=== PATIENT | female | born 1955 | race African-American/Black ===

== ENCOUNTER → 2016-11-14 16:38 | Emergency (ER) | payer BC ==
[~2016-11-14 16:38] MED LIST: MECLIZINE 25 MG PO ONE; Magnesium Sulfate 2 GM IV* 2 GM/50 ML BAG IVPB ONE; Meclizine TAB* 12.5 MG PO ONE; NS 0.9% 1000 ML* 1,000 ML IV SCH; Ondansetron INJ* 2 MG/ML VIAL IV ONE
[2016-11-14 17:22] LABS: Hematocrit 44 % (35-47); Mean Corpuscular HGB Conc 32 g/dl (31-36); Mean Corpuscular Hemoglobin 27 pg (27-31); Mean Corpuscular Volume 83 fL (80-97); Mean Platelet Volume 10 um3 (7.4-10.4); Red Blood Count 5.26 10^6/ul (4.0-5.4); Red Cell Distribution Width 14 % (10.5-15); White Blood Count 9.3 10^3/ul (3.5-10.8)
[2016-11-14 17:34] LABS: ALT 16 U/L (7-52); AST 21 U/L (13-39); Albumin 4.1 g/dL (3.2-5.2); Alkaline Phosphatase 79 U/L (34-104); Anion Gap 9 mmol/L (2-11); BUN/Creatinine Ratio 22.7 (8-20); Blood Urea Nitrogen 25 mg/dL (6-24); C Reactive Protein 4.72 mg/L (< 5.00); CO2 Carbon Dioxide 27 mmol/L (22-32); Calcium 9.7 mg/dL (8.6-10.3); Chloride 103 mmol/L (101-111); Creatine Kinase 347 U/L (10-223); EGFR African American 64.5 (>60); EGFR Non-African American 50.2 (>60); Globulin 3.6 g/dL (2-4); Glucose 122 mg/dL (70-100); Lipase < 10 U/L (11.0-82.0); Magnesium 1.7 mg/dL (1.9-2.7); Potassium 3.1 mmol/L (3.5-5.0); Sodium 139 mmol/L (133-145); Total Protein 7.7 g/dL (6.4-8.9)
[2016-11-14 17:36] LABS: Troponin I 0.03 ng/mL (<0.04)
[2016-11-14 18:03] LABS: TSH (Thyroid Stimulating Horm) 4.59 mcIU/mL (0.34-5.60)
--- NOTE | 2016-11-14 18:12 | RAD ---
INDICATION: Dizziness COMPARISON: None. TECHNIQUE: Single AP portable view of the chest was obtained. FINDINGS: Image quality is compromised due to the relative inferiority of a portable chest x-ray. The heart and mediastinum exhibit normal size and contour. The lungs are grossly clear. There is no evidence of a large pleural effusion. Visualized bones are normal for the patient's age. IMPRESSION: No radiographic evidence for acute cardiopulmonary abnormality on this portable chest x-ray.
--- NOTE | 2016-11-14 18:56 | RAD ---
INDICATION: Dizziness COMPARISON: None. TECHNIQUE: Contiguous axial sections of the brain were obtained from the skull base to the vertex without contrast. FINDINGS: The ventricles, cisterns and sulci are within normal limits. The maria-white matter differentiation is adequately maintained and there is no sulcal effacement. No significant focal abnormality or mass effect is present. There is no evidence for intracranial hemorrhage. Coarse calcification is noted the bilateral petrous carotid arteries and the left greater than right vertebral arteries. No significant focal osseous abnormality is present. The visualized portion of the paranasal sinuses and mastoid air cells appear clear. IMPRESSION: No acute intracranial abnormality as described above.
[2016-11-14 19:22] LABS: Urine Bacteria Absent (Absent); Urine Bilirubin Negative (Negative); Urine Glucose Negative (Negative); Urine Nitrite Negative (Negative)
--- NOTE | 2016-11-14 21:43 | ED ---
Ziggy Burch Anna, scribed for Maury Mccall MD on 11/14/16 at 1712 . Dizziness - HPI Summary HPI Summary: Patient is a 61 y/o female BIBA to [facility] presenting with the sudden onset of dizziness that began at 1445 today. She describes the sensation as beginning with tinnitus and progressing to the spinning of the room. The tinnitus has since resolved. She was sitting in a nondenominational meeting at the onset of the symptoms. The dizziness is exacerbated by moving her head. She also experienced emesis, nausea, diaphoresis, and left chest tightness. Prior to the incident, she had pain in her right leg accompanied by right knee edema. Her PCP prescribed her Prilosec and Naproxen, which has alleviated the pain somewhat. Denies ROTHMAN, abd pain, diarrhea, fever, rhinorrhea, rashes, burning with urination , and SOB. - History Of Current Complaint Chief Complaint: EDDizziness Stated Complaint: CHEST PAIN/VOMITING Time Seen by Provider: 11/14/16 16:56 Hx Obtained From: Patient, Family/Chemical Pumper - Accompanied by family Onset/Duration: Still Present, Suddenly Timing: Hours Character: Room Spinning, Dizzy - Allergies/Home Medications Allergies/Adverse Reactions: Allergies Allergy/AdvReac Type Severity Reaction Status Date / Time No Known Allergies Allergy Verified 11/14/16 17:38 PMH/Surg Hx/FS Hx/Imm Hx Endocrine/Hematology History: Reports: Hx Diabetes Cardiovascular History: Reports: Hx Hypertension GI History: Reports: Hx Diverticulosis, Other GI Disorders - Diverticulitis Infectious Disease History: No Infectious Disease History: Denies: Traveled Outside the [place] in Last 30 Days - Family History Known Family History: Positive: Hypertension, Diabetes, Other - [place] - Social History Occupation: Employed Full-time Lives: With Family Alcohol Use: None Hx Substance Use: No Substance Use Type: Reports: None Hx Tobacco Use: No Smoking Status (MU): Never Smoked Tobacco Review of Systems Positive: Skin Diaphoresis. Negative: Fever ENT: Other - tinnitus Negative: Nasal Discharge Positive: Chest Pain Negative: Shortness Of Breath Positive: Vomiting, Nausea. Negative: Abdominal Pain, Diarrhea Negative: burning Positive: Arthralgia, Edema Negative: Rash Neurological: Other - dizziness Negative: Headache All Other Systems Reviewed And Are Negative: Yes Physical Exam Triage Information Reviewed: Yes Vital Signs On Initial Exam: Initial Vitals Temp Pulse Resp Pulse Ox 97.9 F 64 16 98 11/14/16 16:51 11/14/16 16:51 11/14/16 16:51 11/14/16 16:51 Vital Signs Reviewed: Yes Appearance: Positive: No Pain Distress, Ill-Appearing - mildly Skin: Positive: Warm, Skin Color Reflects Adequate Perfusion, Dry Head/Face: Positive: Normal Head/Face Inspection Eyes: Positive: EOMI, JAKE ENT: Positive: Other - Left ear cerumen impaction. Right TM normal. Respiratory/Lung Sounds: Positive: Clear to Auscultation, Breath Sounds Present Cardiovascular: Positive: RRR Abdomen Description: Positive: Nontender, Soft Bowel Sounds: Positive: Present Musculoskeletal: Positive: Strength/ROM Intact, Edema Left, Edema Right Neurological: Positive: Sensory/Motor Intact, Alert, Oriented to Person Place, Time, Other - Nystagmus. No focal neurological deficit. Psychiatric: Positive: Affect/Mood Appropriate Diagnostics - Vital Signs Vital Signs Temp Pulse Resp BP Pulse Ox 11/14/16 16:55 97.9 F 64 14 207/88 98 11/14/16 16:51 97.9 F 64 16 98 - Laboratory Lab Results: Lab Results 11/14/16 11/14/16 11/14/16 Range/Units 16:55 16:55 16:55 WBC 9.3 (3.5-10.8) 10^3/ul RBC 5.26 (4.0-5.4) 10^6/ul Hgb 14.0 (12.0-16.0) g/dl Hct 44 (35-47) % MCV 83 (80-97) fL MCH 27 (27-31) pg MCHC 32 (31-36) g/dl RDW 14 (10.5-15) % Plt Count 152 (150-450) 10^3/ul MPV 10 (7.4-10.4) um3 Neut % (Auto) 58.1 (38-83) % Lymph % (Auto) 35.5 (25-47) % Clay % (Auto) 4.8 (1-9) % Eos % (Auto) 1.2 (0-6) % Baso % (Auto) 0.4 (0-2) % Absolute Neuts (auto) 5.4 (1.5-7.7) 10^3/ul Absolute Lymphs (auto) 3.3 (1.0-4.8) 10^3/ul Absolute Monos (auto) 0.4 (0-0.8) 10^3/ul Absolute Eos (auto) 0.1 (0-0.6) 10^3/ul Absolute Basos (auto) 0 (0-0.2) 10^3/ul Absolute Nucleated RBC 0.01 10^3/ul Nucleated RBC % 0.1 INR (Anticoag Therapy) 0.86 L (0.89-1.11) APTT 28.7 (26.0-36.3) seconds D-Dimer, Quantitative 239 H (Less Than 230) ng/mL Sodium 139 (133-145) mmol/L Potassium 3.1 L (3.5-5.0) mmol/L Chloride 103 (101-111) mmol/L Carbon Dioxide 27 (22-32) mmol/L Anion Gap 9 (2-11) mmol/L BUN 25 H (6-24) mg/dL Creatinine 1.10 H (0.51-0.95) mg/dL Est GFR ( Amer) 64.5 (>60) Est GFR (Non-Af Amer) 50.2 (>60) BUN/Creatinine Ratio 22.7 H (8-20) Glucose 122 H (70-100) mg/dL Lactic Acid (0.5-2.0) mmol/L Calcium 9.7 (8.6-10.3) mg/dL Magnesium 1.7 L (1.9-2.7) mg/dL Total Bilirubin 0.30 (0.2-1.0) mg/dL AST 21 (13-39) U/L ALT 16 (7-52) U/L Alkaline Phosphatase 79 (34-104) U/L Total Creatine Kinase 347 H (10-223) U/L CK-MB (CK-2) 7.1 H (0.6-6.3) ng/mL Troponin I 0.03 (<0.04) ng/mL C-Reactive Protein 4.72 (< 5.00) mg/L B-Natriuretic Peptide ( - 100) pg/mL Total Protein 7.7 (6.4-8.9) g/dL Albumin 4.1 (3.2-5.2) g/dL Globulin 3.6 (2-4) g/dL Albumin/Globulin Ratio 1.1 (1-3) Lipase < 10 L (11.0-82.0) U/L TSH 4.59 (0.34-5.60) mcIU/mL Urine Color Urine Appearance Urine pH (5-9) Ur Specific [place] (1.010-1.030) Urine Protein (Negative) Urine Ketones (Negative) Urine Blood (Negative) Urine Nitrate (Negative) Urine Bilirubin (Negative) Urine Urobilinogen (Negative) Ur Leukocyte Esterase (Negative) Urine WBC (Auto) (Absent) Urine RBC (Auto) (Absent) Ur Squamous Epith Cells (Absent) Urine Bacteria (Absent) Urine Glucose (Negative) 11/14/16 11/14/16 11/14/16 Range/Units 16:55 16:55 17:06 WBC (3.5-10.8) 10^3/ul RBC (4.0-5.4) 10^6/ul Hgb (12.0-16.0) g/dl Hct (35-47) % MCV (80-97) fL MCH (27-31) pg MCHC (31-36) g/dl RDW (10.5-15) % Plt Count (150-450) 10^3/ul MPV (7.4-10.4) um3 Neut % (Auto) (38-83) % Lymph % (Auto) (25-47) % Clay % (Auto) (1-9) % Eos % (Auto) (0-6) % Baso % (Auto) (0-2) % Absolute Neuts (auto) (1.5-7.7) 10^3/ul Absolute Lymphs (auto) (1.0-4.8) 10^3/ul Absolute Monos (auto) (0-0.8) 10^3/ul Absolute Eos (auto) (0-0.6) 10^3/ul Absolute Basos (auto) (0-0.2) 10^3/ul Absolute Nucleated RBC 10^3/ul Nucleated RBC % INR (Anticoag Therapy) (0.89-1.11) APTT (26.0-36.3) seconds D-Dimer, Quantitative (Less Than 230) ng/mL Sodium (133-145) mmol/L Potassium (3.5-5.0) mmol/L Chloride (101-111) mmol/L Carbon Dioxide (22-32) mmol/L Anion Gap (2-11) mmol/L BUN (6-24) mg/dL Creatinine (0.51-0.95) mg/dL Est GFR ( Amer) (>60) Est GFR (Non-Af Amer) (>60) BUN/Creatinine Ratio (8-20) Glucose (70-100) mg/dL Lactic Acid 1.5 (0.5-2.0) mmol/L Calcium (8.6-10.3) mg/dL Magnesium (1.9-2.7) mg/dL Total Bilirubin (0.2-1.0) mg/dL AST (13-39) U/L ALT (7-52) U/L Alkaline Phosphatase (34-104) U/L Total Creatine Kinase (10-223) U/L CK-MB (CK-2) (0.6-6.3) ng/mL Troponin I (<0.04) ng/mL C-Reactive Protein (< 5.00) mg/L B-Natriuretic Peptide 74 ( - 100) pg/mL Total Protein (6.4-8.9) g/dL Albumin (3.2-5.2) g/dL Globulin (2-4) g/dL Albumin/Globulin Ratio (1-3) Lipase (11.0-82.0) U/L TSH (0.34-5.60) mcIU/mL Urine Color Yellow Urine Appearance Clear Urine pH 5.0 (5-9) Ur Specific [place] 1.013 (1.010-1.030) Urine Protein Negative (Negative) Urine Ketones Negative (Negative) Urine Blood Negative (Negative) Urine Nitrate Negative (Negative) Urine Bilirubin Negative (Negative) Urine Urobilinogen Negative (Negative) Ur Leukocyte Esterase 2+ H (Negative) Urine WBC (Auto) Trace(0-5/hpf) (Absent) Urine RBC (Auto) Absent (Absent) Ur Squamous Epith Cells Present H (Absent) Urine Bacteria Absent (Absent) Urine Glucose Negative (Negative) Result Diagrams: 11/14/16 16:55 11/14/16 16:55 Lab Statement: Any lab studies that have been ordered have been reviewed, and results considered in the medical decision making process. - Radiology CXR Xray Interpretation: No Acute Changes Radiology Interpretation Completed By: Radiologist - IMPRESSION: No radiographic evidence for acute cardiopulmonary abnormality on this portable chest x-ray. - CT CT Brain CT Interpretation: No Acute Changes CT Interpretation Completed By: Radiologist - IMPRESSION: No acute intracranial abnormality as described above. - EKG 1707 Cardiac Rate: Bradycardia - 58 bpm EKG Rhythm: Sinus Bradycardia Ectopy: None EKG Interpretation: [address] elevation in V2, 1/[address] elevation in V1 Re-Evaluation - Re-Evaluation First Eval Re-Evaluation Time: 21:00 Change: Improved Comment: Discussed results and plan of care with patient. The patient reports that she is feeling much better from the vertigo. Patient agrees with plan to US. Second Eval Re-Evaluation Time: 21:35 Comment: Patient expresses a wish to follow up with her PCP and not have the US now. Dizzy Course/Dx - Course Course Of Treatment: NO CRITICAL CARE TIME Assessment/Plan: DIZZINESS IMPROVED AFTER MECLIZINE. DISCUSSED RESULTS WITH PATIENT/FAMILY. NO CHEST PAIN, NO SOB, NO WEAKNESS/NUMBNESS. DISCUSSED US OF LE TO R/O DVT AND ALSO ADMISSION. PATIENT PREFERS TO F/U WITH HER PMD, DECLINES ADMISSION. DISCHARGE HOME STABLE. - Diagnoses Provider Diagnoses: Vertigo, Dizziness Discharge - Discharge Plan Condition: Stable Disposition: HOME Prescriptions: Meclizine HCl [Meclizine 25] 25 mg PO Q6HR PRN #15 tab PRN Reason: Dizziness Patient Education Materials: Vertigo (ED), Dizziness (ED), Edema (ED) Referrals: John Mendoza MD [Other] Non Staff,Doctor [Primary Care Provider] - Additional Instructions: FOLLOW UP WITH YOUR DOCTOR. RETURN TO THE EMERGENCY DEPARTMENT FOR ANY WORSENING OF YOUR CONDITION; DIZZINESS, WEAKNESS, NUMBNESS, YOU FEEL ILL, CHEST PAIN, SHORTNESS OF BREATH OR QUESTIONS OR CONCERNS. The documentation as recorded by the Ziggy mane Anna accurately reflects the service I personally performed and the decisions made by me, Maury Mccall MD.
[2016-11-14 22:20] VITALS: BP 174/92
== END | disposition home or self-care (01) ==
LOC: ED 16:38
DX: R42 Dizziness and giddiness (principal); R07.9 Chest pain, unspecified; R11.2 Nausea with vomiting, unspecified
CPT/HCPCS: 36415; 70450; 71010; 80053; 81003; 81015; 82550; 82553; 83605; 83690; 83735; 83880; 84443; 84484; 85025; 85379; 85610; 85730; 86140; 87086; 93005; 96374; 99282; A9270-GY; J2405